=== PATIENT | female | born 1970 | race Two or more races ===

== ENCOUNTER 2024-01-24 16:10 | Emergency (ER) | payer OTHER ==
[~2024-01-24] VITALS: Ht 157.5 cm; Wt 68.5 kg
[2024-01-24] MEDS ORDERED: METFORMIN HCL500 MG (16:33)
[2024-01-24] MEDS ORDERED: TOPROL XL50 M1 (16:33)
[2024-01-24] MEDS ORDERED: PHENTERMINE HCL15 MG PO (16:33)
[2024-01-24] MEDS ORDERED: TRAMADOL HCL 50 MG TABLET PO STA (19:36)
[2024-01-24] MEDS ORDERED: TRAM1TAB98 PO (20:46)
== END 2024-01-24 20:59 | disposition home or self-care (01) ==
LOC: ER 16:11
DX: R07.89 Other chest pain (principal); I10 Essential (primary) hypertension; Z88.6 Allergy status to analgesic agent; Z88.8 Allergy status to other drugs, medicaments and biological substances; Z91.018 Allergy to other foods